=== PATIENT | female | born 1990 | race Caucasian/White ===

== ENCOUNTER 2020-07-23 07:07 | Inpatient (IN) ==
[2020-07-23] MEDS ORDERED: Metoclopramide 10 MG/2 ML VIAL IVP ONE (07:55)
[2020-07-23] MEDS ORDERED: Ringers Solution, Lactated 1,000 ML IVC ONE (07:55)
[2020-07-23] MEDS ORDERED: CeFAZolin 2,000 MG/50 ML BAG IVPB ONE (07:55)
[2020-07-23] MEDS ORDERED: Famotidine 20 MG/2 ML VIAL IVP ONE (07:55)
[2020-07-23] MEDS ORDERED: Ringers Solution, Lactated 1,000 ML IVC SCH ×2 (08:00→12:02)
[2020-07-23 08:37] LABS: Basophils # 0.1 K/mcL (0.0-0.2); Basophils % 0.4 %; Eosinophils # 0.1 K/mcL (0.0-0.6); Eosinophils % 0.8 %; Hematocrit 35.9 % (35.3-44.9); Hemoglobin 11.8 g/dL (11.5-15.4); Immature Granulocytes % 0.7 % (0-4); Lymphocytes # 2.6 K/mcL (0.6-4.6); Lymphocytes % 17.4 %; Mean Corpuscular HGB Conc 32.9 g/dL (31.6-35.5); Mean Corpuscular Hemoglobin 29.8 pg (28.0-33.3); Mean Corpuscular Volume 90.7 fL (83.0-100.0); Mean Platelet Volume 9.9 fL (9.4-12.4); Monocytes # 0.8 K/mcL (0.0-1.3); Monocytes % 5.1 %; Neutrophils # 11.1 K/mcL (1.6-8.9); Platelet Count 319 K/mcL (140-400); Red Blood Count 3.96 M/mcL (3.82-4.97); Segmented Neutrophils % 75.6 %; White Blood Count 14.7 K/mcL (4.3-11.1)
[2020-07-23 08:42] LABS: Amphetamine Screen,Urine Negative ng/mL (Cutoff=1000); Barbiturate Screen,Urine Negative ng/mL (Cutoff=200); Benzodiazepines Screen,Urine Negative ng/mL (Cutoff=200); Cannabinoid Screen,Urine Negative ng/mL (Cutoff = 50); Cocaine Screen,Urine Negative ng/mL (Cutoff= 300); Opiate Screen,Urine Negative ng/mL (Cutoff=300); Phencyclidine Screen,Urine Negative ng/mL (Cutoff=25)
[2020-07-23] MEDS ORDERED: Lidocaine -MPF 1% 2 ML VIAL ONE (08:56)
[2020-07-23] MEDS ORDERED: *HR* Morphine Sulfate/PF 10 MG/10 ML AMPUL ONE (09:39)
[2020-07-23] MEDS ORDERED: EPHEDrine 50 MG/ML VIAL ONE (09:39)
[2020-07-23] MEDS ORDERED: *HR* FentaNYL (PF) 100 MCG/2 ML VIAL ONE (09:39)
[2020-07-23] MEDS ORDERED: Ringers Solution, Lactated 1,000 ML ONE (09:40)
[2020-07-23] MEDS ORDERED: Ondansetron 4 MG/2 ML VIAL ONE ×2 (10:15→10:28)
[2020-07-23] MEDS ORDERED: *HR* Oxytocin 10 UNIT/ML VIAL IM ONE ×2 (10:28→10:57)
[2020-07-23] MEDS ORDERED: Dexamethasone 4 MG/ML VIAL ONE (10:28)
[2020-07-23] MEDS ORDERED: Ketorolac 30 MG/ML VIAL ONE (10:28)
[2020-07-23] MEDS ORDERED: *HR* Phenylephrine 10 MG/ML VIAL ONE (10:51)
[2020-07-23] MEDS ORDERED: Oxytocin 20 units/ LR 1000 mL 20 UNIT/1,000 ML BAG IVC ONE (11:59)
[2020-07-23] MEDS ORDERED: Metoclopramide 10 MG/2 ML VIAL IVP PRN (12:02)
[2020-07-23] MEDS ORDERED: Sennosides 8.6 MG TABLET PO PRN (12:02)
[2020-07-23] MEDS ORDERED: Ondansetron 4 MG/2 ML VIAL IVP PRN (12:02)
[2020-07-23] MEDS ORDERED: *HR* OxyCODONE/APAP 5/325 TABLET PO PRN (12:02)
[2020-07-23] MEDS ORDERED: Rho Immune Globulin 1,500 UNIT SYRINGE IM ONE (12:02)
[2020-07-23] MEDS ORDERED: Simethicone 80 MG TAB.CHEW PO PRN (12:02)
[2020-07-23] MEDS ORDERED: Oxytocin 20 units/ LR 1000 mL 20 UNIT/1,000 ML BAG IVC SCH ×2 (12:02)
[2020-07-23] MEDS: Amoxicillin 500 MG CAPSULE PO SCH (20:40)
[2020-07-24] MEDS: Ibuprofen 600 MG TABLET PO PRN ×2 (02:14→08:01)
[2020-07-24 07:17] LABS: Basophils # 0.1 K/mcL (0.0-0.2); Basophils % 0.4 %; Eosinophils # 0.1 K/mcL (0.0-0.6); Eosinophils % 0.7 %; Hematocrit 31.7 % (35.3-44.9); Hemoglobin 10.5 g/dL (11.5-15.4); Immature Granulocytes % 0.6 % (0-4); Lymphocytes # 3.5 K/mcL (0.6-4.6); Lymphocytes % 18.2 %; Mean Corpuscular HGB Conc 33.1 g/dL (31.6-35.5); Mean Corpuscular Hemoglobin 30.8 pg (28.0-33.3); Mean Platelet Volume 9.7 fL (9.4-12.4); Monocytes # 1.1 K/mcL (0.0-1.3); Monocytes % 5.7 %; Neutrophils # 14.5 K/mcL (1.6-8.9); Platelet Count 293 K/mcL (140-400); Red Blood Count 3.41 M/mcL (3.82-4.97); Red Cell Distribution Width 13.9 % (11.5-14.5); Segmented Neutrophils % 74.4 %; White Blood Count 19.5 K/mcL (4.3-11.1)
[2020-07-24] MEDS: Amoxicillin 500 MG CAPSULE PO SCH (08:01)
[2020-07-24 08:08] VITALS: BP 118/76
[2020-07-24] MEDS ORDERED: Prenatal Vit/FA 1 EACH TABLET PO SCH (09:00)
[2020-07-24] MEDS ORDERED: GuaiFENesin Liq 200 MG/10 ML UDC PO PRN (11:00)
== END 2020-07-24 17:43 | disposition home or self-care (01) | DRG 540 ==
LOC: 1NENULAB 07:07 → 1NENUOBS 13:54
PROVIDERS: ADMIT Student in an Organized Health Care Education/Training Program; ATTEND Student in an Organized Health Care Education/Training Program